=== PATIENT | female | born 1985 | race Caucasian/White ===

== ENCOUNTER 2022-06-23 10:35 | Emergency (ER) | payer OTHER ==
[2022-06-23] MEDS ORDERED: KETOROLAC 15 MG/ML 1 ML VIAL IM STA (11:09)
[2022-06-23] MEDS ORDERED: PROPARACAINE 0.5% OPHTH DROPS 15 ML BTL LEFT EYE STA (11:10)
[2022-06-23] MEDS ORDERED: FLUORESCEIN STRIPS 1 MG STRIP LEFT EYE ONE (11:10)
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
--- NOTE | 2022-06-23 12:13 | XR ---
EXAM TYPE: LUMBAR SPINE X RAY SERIES COMPARISON: NONE HISTORY: Low back pain TECHNIQUE: 4 views are submitted. FINDINGS: Alignment is anatomic. The pedicles are intact. The transverse processes are intact. There is no s pondylolysis or spondylolisthesis. There is moderate degenerative disc disease L3-L4 with mild disc disease L4-5 and L5-S1. Facet arthropathy L4-5 and L5-S1. There is a density along the posterior sofía in of the left 12th rib is indeterminate. Sclerosis involving the left iliac bone. IMPRESSION: 1. Multilevel degenerative disc disease most marked at L3-L4. 2. There is a irregular density extending off the posterior margin of the left 12th rib near the vert ebral chondral junction. Recommend follow-up MRI of the lumbar spine to include T12 and a short-term basis
[2022-06-23 12:45] VITALS: BP 108/71; PULSE 64; RESP 16; TEMP 99.6
== END 2022-06-23 12:45 | disposition home or self-care (01) ==
LOC: EC 10:35
DX: S05.02XA Injury of conjunctiva and corneal abrasion without foreign body, left eye, initial encounter (principal); F17.200 Nicotine dependence, unspecified, uncomplicated; J45.909 Unspecified asthma, uncomplicated; Z88.1 Allergy status to other antibiotic agents; Z98.51 Tubal ligation status; Z72.89 Other problems related to lifestyle; W22.8XXA Striking against or struck by other objects, initial encounter
CPT/HCPCS: 72100; 99283; 96372; J1885